=== PATIENT | male | born 1955 | race Caucasian/White ===

== ENCOUNTER → 2017-10-03 | Outpatient (CLI) | payer BC, MEDICARE ==
--- NOTE | 2017-10-03 15:09 | CARD ---
APPROVED REPORT EXAM: Two-dimensional and M-mode echocardiogram with Doppler and color Doppler. Other Information Quality : GoodHR: 66bpm INDICATION Abnormal ECG 2D DIMENSIONS Left Atrium(2D)3.2 (1.6-4.0cm)IVSd1.2 (0.7-1.1cm) Aortic Root(2D)3.7 (2.0-3.7cm)LVDd5.7 (3.9-5.9cm) LVOT Diameter2.2 (1.8-2.4cm)PWd1.0 (0.7-1.1cm) LVDs3.9 (2.5-4.0cm)FS (%) 31.7 % SV96.0 mlLVEF(%)58.9 (>50%) Aortic Valve AoV Peak Fuentes.122.9cm/sAoV VTI27.7cm AO Peak GR.6.0mmHgLVOT Peak Fuentes.100.6cm/s AO Mean GR.4mmHgAVA (VMAX)3.14cm2 Mitral Valve MV E Glsutstb99.3cm/sMV DECEL [id number] MV A Tqyemruu40.5cm/sE/A Ratio0.9 Pulmonary Valve PV Peak Cgkafzmv515.1cm/sPV Peak Grad.4mmHg Pulmonary Vein S1 Aowicmhr80.8cm/sD2 Xjxjjlrp62.8cm/s LEFT VENTRICLE The left ventricle is normal size. There is borderline septal hypertrophy. The left ventricular systo lic function is low normal. EF 50-55% There is normal LV segmental wall motion. The left ventricular diastolic function and filling is normal for age. RIGHT VENTRICLE The right ventricle is normal size. The right ventricular systolic function is normal. ATRIA The left atrium size is normal. The right atrium size is normal. The interatrial septum is intact wit h no evidence for an atrial septal defect or patent foramen ovale as noted on 2-D or Doppler imaging. AORTIC VALVE The aortic valve is thickened but opens well. Doppler and Color Flow revealed no significant aortic r egurgitation. There is no significant aortic valvular stenosis. There is no aortic valvular vegetatio n. MITRAL VALVE The mitral valve is thickened but opens well. There is no evidence of mitral valve prolapse. There is no mitral valve stenosis. Doppler and Color Flow revealed no mitral valve regurgitation noted. TRICUSPID VALVE The tricuspid valve leaflets are thickened , but open well. Doppler and Color Flow revealed no tricus pid valve regurgitation noted. There is no tricuspid valve prolapse or vegetation. There is no tricus pid valve stenosis. PULMONIC VALVE Doppler and Color Flow revealed trace pulmonic valvular regurgitation. There is no pulmonic valvular stenosis. GREAT VESSELS The aortic root is normal in size. The IVC is normal in size and collapses >50% with inspiration. PERICARDIAL EFFUSION There is no evidence of significant pericardial effusion. Critical Notification Critical Value: No <Conclusion> The left ventricular systolic function is low normal. EF 50-55% There is normal LV segmental wall motion.
== END | disposition home or self-care (01) ==
LOC: ECHO 12:26
PROVIDERS: ATTEND Specialist
DX: R94.31 Abnormal electrocardiogram [ECG] [EKG] (principal); I37.1 Nonrheumatic pulmonary valve insufficiency
CPT/HCPCS: 93306

== ENCOUNTER → 2020-09-30 | Outpatient (CLI) | payer MEDICARE ==
--- NOTE | 2020-09-30 17:27 | RAD ---
INDICATION: Back pain COMPARISON: None. IMPRESSION: Lumbar spine: 3 views obtained. Degenerative changes are seen throughout the lumbar spine with osteophyte formation at the vertebral body endplates as well as facet hypertrophy. Grade 1 anterolisthesis of L4 on 5. Subtle lucency at the L5 pedicle, pars defect could have this appearance. Electronically signed by: Stefan Zee MD (09/30/2020 5:24 PM) [id number]
== END ==
LOC: DXRAD 15:22
PROVIDERS: ATTEND Specialist
DX: M47.816 Spondylosis without myelopathy or radiculopathy, lumbar region (principal); M25.78 Osteophyte, vertebrae
CPT/HCPCS: 72100